=== PATIENT | female | born 1970 | race Caucasian/White ===

== ENCOUNTER 2021-11-10 09:49 | Emergency (ER) | payer OTHER ==
[~2021-11-10] VITALS: Ht 165.1 cm; Wt 56.0 kg
[2021-11-10 10:15] VITALS: BP 124/72
[2021-11-10] MEDS ORDERED: TETRACAINE 0.5% OPHTH DROPS 4ML BOTHEYE ONE (10:45)
[2021-11-10] MEDS ORDERED: ACETAMINOPHEN 325MG TABLET PO ONE (10:45)
[2021-11-10] MEDS ORDERED: IBUP-2028 MT (11:48)
[2021-11-10] MEDS ORDERED: FLUT16SP15 BOTHNSTRLS (11:48)
[2021-11-10] MEDS ORDERED: [UNRECOGNIZED DRUG - CODE] MT (11:48)
== END 2021-11-10 12:01 | disposition home or self-care (01) ==
LOC: ER 11:49
DX: R51.9 Headache, unspecified (principal); R94.31 Abnormal electrocardiogram [ECG] [EKG]
CPT/HCPCS: 93005; 99284